=== PATIENT | female | born 1960 | race Caucasian/White ===

== ENCOUNTER → 2018-03-31 | Day surgery (SDC) | payer BC ==
[~2018-03-31] VITALS: Ht 165.1 cm; Wt 88.5 kg
[~2018-03-31] MED LIST: ALLEGRA180 MG PO; APAP650 PO; ARTHROTEC EC 71 EAC1 PO; AZATHIOPRINE50 MG PO; AZELASTINE137 MCG/0. NASAL; BUPROPION HCL150 M1 PO; CALCIUM 600 +1 EA11 PO; CIPROFLOXACIN500 M3; CLARITIN-D 121 EACH PO; COLACE100 MG PO; COUMADIN 4 MG TA4 M1 PO; COUMADIN 5 MG TA5 M1 PO; CYMBALTA60 MG PO; FLAGYL500 MG PO; HYDROCODONE-AP1 EA11 PO; HYDROXYCHLOROQ200 M1 PO; IBUPROFEN 800800 M1 GT; IBUPROFEN 800800 M1 PO; LISINOPRIL20 MG PO; MUCINEX DM TABL1 TA1 PO; NASONEX17 GM NS; NORCO 5-325 TA1 EACH PO; NORCO 7.5-3251 EACH PO; OMEPRAZOLE40 MG PO; OXYCONTIN10 M1 PO; PERCOCET 10-321 EACH PO; TOPROL XL50 MG PO; TRAMADOL 50 MG50 MG PO; ULTRAM ER100 MG PO; VICODIN PO; VISTARIL 25 MG25 M1 PO; VITAMIN D-32000 UNIT PO; ZONEGRAN100 MG PO
--- NOTE | ~2018-03-31 | O ---
[address] [address] OPERATIVE REPORT Name: BALJINDER PHILLIPS Room #: REG [facility]#: [id number] Admission: 03/31/18 Attend Phys: Young Tavarez MD Discharge: Date of : 60 Report #: [id number] THIS REPORT FOR: //name// CC: Young Menesesie Thee DATE OF SERVICE: 03/31/2018 SERVICE: Orthopedics. FACILITY: [place]. SURGEON: Young Tavarez MD ENGLISH TUTOR: Rosmery Guzmán NP INDICATION FOR ENGLISH TUTOR: Extremity positioning, suture management, assistance with repair. PREOPERATIVE DIAGNOSES: 1. Left hip pain. 2. Left hip impingement syndrome. 3. Left hip labral tear. POSTOPERATIVE DIAGNOSES: 1. Left hip pain. 2. Left hip impingement syndrome. 3. Left hip labral tear. 4. Left hip chondromalacia. PROCEDURE: 1. Left hip arthroscopic labral repair. 2. Left hip arthroscopic chondroplasty of the articular cartilage. 3. Left hip arthroscopic Cam osteoplasty. COMPLICATIONS: None. DRAINS: None. SPECIMENS: None. ANESTHESIA TYPE: General with regional. FINDINGS: 1. Fully detached acetabular rim with an associated detached articular cartilage segment at the posterior superior portion of the acetabulum with [address] [address] OPERATIVE REPORT Name: BALJINDER PHILLIPS Room #: REG [facility]#: [id number] Admission: 03/31/18 Attend Phys: Young Tavarez MD Discharge: Date of : 60 Report #: [id number] unstable flap component. 2. Acetabular labral repair with [place] CinchLock anchor x 2 and NanoTack anchor x 1. 3. 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 HISTORY AND INDICATIONS: The patient is a 57-year-old young lady with a history of significant right hip pain and lifestyle limiting pain and dysfunction in the hip that had failed extensive conservative measures including rest, activity modifications, physical therapy, injections and modalities. Unfortunately, despite all these conservative measures, she continued to have significant pain that had failed all conservative measures and ultimately she elected to undergo surgical management after the imaging and treatment options were discussed with her. 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 Risks, benefits, alternatives and indications of surgery were discussed with her in detail. Risks included but not limited to pain, bleeding, infection, injuring nerves or blood vessels, persistent pain despite surgical intervention, failure of any repairs, reconstructions, progression of any preexisting chondral injury, stiffness, need for further surgery as well as complications related to anesthesia such as stroke, heart attack, pulmonary complications, thromboembolic disease and . Despite these risks, she wished to proceed. PROCEDURE IN DETAIL: After left lower extremity was correctly identified in the preoperative holding area as the operative extremity, the patient underwent placement of a single shot regional nerve block by the Anesthesia team. She was then taken to the Operating Room and placed supine on the operative table. General anesthesia was induced without complication. All bony prominences and subcutaneous nerves were padded appropriately. Prophylactic antibiotics were administered at appropriate time. The left lower extremity femoral head and neck junction was mapped out under fluoroscopy, which confirmed the presence of a small to medium sized Cam deformity. Left leg was then prepped and draped in standard sterile fashion. Timeout procedure performed. Traction was applied to the left lower extremity and an anterolateral viewing portal was established followed by anterior medial working portal under fluoroscopy. There was noted to be a significant amount of very intense proliferative synovitis with significant erythema within the capsule. There was noted to be a detached acetabular labral tear extending from the 11 o'clock position anteriorly to the 3:30 position laterally towards the lateral portion of the tear. The articular cartilage was still attached to the labrum and so there was a very large flap of articular cartilage that had pulled free from the acetabulum. There was some fibrocartilage present where there was an attempted healing, but there was also grade 4 damage in this area due to the detached labral flap. The capsule was reflected. There was no significant pincer lesion, so the capsule was reflected just sufficient to allow access to the [address] [address] OPERATIVE REPORT Name: BALJINDER PHILLIPS Room #: REG [facility]#: [id number] Admission: 03/31/18 Attend Phys: Young Tavarez MD Discharge: Date of : 60 Report #: [id number] acetabular rim, so the first of the anchors could be placed. A [place] CinchLock suture anchor was then placed anteriorly with a cerclage suture, which provided good anatomic reduction of the labrum and compression against the acetabular rim, which had been prepared with the bur to bleeding surface by gently abrading it. Second anchor was placed more laterally and then attention was turned towards the lateral portion of her pathology. Scope was placed anteriorly. The lateral portal was cannulated and then the knife was used to dissect the chondral flap free from the acetabular labrum. This was removed because this was nonviable tissue. Then, chondroplasty was completed on the acetabular dome side of the lesion and then the NanoTack anchor drill guide was placed under fluoroscopy and anchor was drilled and seated securely. Cerclage suture was used to stabilize the labrum here. At this point, the labrum was quite stable and secure, was stable to probing. A shaver was used to complete the chondroplasty. There was some mild mottling of the femoral head, but overall the femoral head articular cartilage was healthy appearing. At this point, traction was let down. Attention was turned towards the peripheral compartment. The transverse capsulotomy was then extended down the femoral neck in a T-shape allowing access to the more distal portion of her Cam deformity. Then, the bur was used to perform a Cam osteochondroplasty in a typical fashion. The bony debris was lavaged out of the hip. The instruments were removed. The C-arm was brought in to confirm that a complete Cam resection had been adequately achieved and the instruments were placed back in the hip and the T-shaped capsulotomy was closed with a total of three #2 Vicryl sutures. At this point, the instruments were removed. Portal sites were closed. Sterile dressing was applied. The patient was awakened by Anesthesia and taken to recovery room in stable condition. There were no complications. All counts were recorded as correct. By: [id number] Young Tavarez MD /zaria
--- NOTE | ~2018-03-31 | EKG ---
[address] [address] ELECTROCARDIOGRAM REPORT Name: FLORAWILTONFERNANDABALJINDERJORDON BRITO Room #: REG [facility]#: [id number] Admission: 03/31/18 Attend Phys: Young Tavarez MD Discharge: Date of : 60 Report #: [id number] THIS REPORT FOR: //name// [facility] Test Date: 2018-03-31 Test Time: 12:55:02 Pat Name: BALJINDER PHILLIPS Department: Room: Gender: F Hardscape Foreman: HAYLIE : 1960 Requested By: Young Tavarez Order Number: [id number] MD: Aaron Calero Measurements Intervals [place] Rate: 61 P: 31 WA: 200 QRS: 2 QRSD: 99 T: -18 QT: 433 QTc: 437 Interpretive Statements Sinus rhythm Low voltage, precordial leads Compared to ECG 09/09/2011 12:41:54 Low QRS voltage now present ST (T wave) deviation no longer present Electronically Signed On 03-31-2018 13:32:06 [employer] TECHNICIAN by Aaron Calero [email or web address] <ELECTRONICALLY SIGNED> By: Aaron Calero MD 03/31/18 1332 1255 1255 Aaron Calero MD /EPI
[2018-03-31 13:00] VITALS: BP 141/90
[2018-03-31 17:52] VITALS: BP 141/90
== END | disposition home or self-care (01) ==
LOC: OR 05:18
DX: S73.102A Unspecified sprain of left hip, initial encounter (principal); M25.852 Other specified joint disorders, left hip; M94.252 Chondromalacia, left hip; I10 Essential (primary) hypertension; K21.9 Gastro-esophageal reflux disease without esophagitis; F32.9 Major depressive disorder, single episode, unspecified; F41.9 Anxiety disorder, unspecified; Z96.653 Presence of artificial knee joint, bilateral; Z98.890 Other specified postprocedural states; Z79.899 Other long term (current) drug therapy; X58.XXXA Exposure to other specified factors, initial encounter; Y93.89 Activity, other specified; Y92.89 Other specified places as the place of occurrence of the external cause; Y99.8 Other external cause status
CPT/HCPCS: 50010; 50101; 50386; 51538; 52304; 52313; 55430; 56524; 56527; 57092; 57103; 62110; 62900; 64039; 64043; 70005